=== PATIENT | female | born 1965 | race Caucasian/White ===

== ENCOUNTER → 2024-01-23 12:52 | Outpatient (REF) | payer BC, SELFPAY | LOC: MRI 3T 12:52 | PROVIDERS: ATTENDING PHYSICIAN Nurse Practitioner Adult Health; FAMILY PHYSICIAN Nurse Practitioner Adult Health | DX: G43.111 Migraine with aura, intractable, with status migrainosus (principal); G43.809 Other migraine, not intractable, without status migrainosus | CPT/HCPCS: 70553; A9575 ==

== ENCOUNTER → 2024-06-03 14:01 | Outpatient (REF) | payer BC, SELFPAY | LOC: HWRAD 14:01 | PROVIDERS: ATTENDING PHYSICIAN Physician Assistant; FAMILY PHYSICIAN Nurse Practitioner Adult Health | DX: M25.569 Pain in unspecified knee (principal); M54.2 Cervicalgia; M79.643 Pain in unspecified hand | CPT/HCPCS: 72052; 73120; 73560; 73565 ==

== ENCOUNTER 2024-10-15 06:09 | Day surgery (SDC) | payer BC, SELFPAY ==
[2024-10-15 06:40] VITALS: BMI 27.0
[2024-10-15 06:45] VITALS: BP 142/79
[2024-10-15 07:00] VITALS: BMI 27.0
[2024-10-15] MEDS: TYLENOL 1000 MG PO (07:04)
[2024-10-15] MEDS: NORMOSOL-R/PLASMALYTE-A 1000 IV (07:06)
--- NOTE | 2024-10-15 07:42 | W.SUR.PREOP ---
Pre-Operative Surgical Note
-
I have examined this patient prior to the performance of the scheduled procedure.
The patient's condition is unchanged from the time of the current History and
Physical and the patient is able to undergo the scheduled procedure.
--- NOTE | 2024-10-15 07:42 | HP.FOC2 ---
Focused History & Physical
Chief Complaint
HPI:
Chief Complaint: Umbilical hernia
HPI / Indication for Planned Procedure: This is a 59-year-old female with a symptomatic umbilical hernia
Relevant Past Medical History: Negative
Relevant Social History: Negative
Relevant Family History: Negative
Relevant Past Surgical History: Negative
Review of Systems
Review of Pertinent Systems: All Systems Negative
Medication
See Medication form for detailed medications: Yes
Medication List (including Herbals & OTC):
Bifidobacterium infantis 4 mg capsule (Align (B.infantis)) 4 mg PO DAILY 10/14/24
acetaminophen 325 mg tablet 650 mg PO Q4H PRN pain 10/14/24
alprazolam 0.25 mg tablet (Xanax) 0.25 mg PO BID PRN anxiety 10/14/24
escitalopram oxalate 5 mg tablet (Lexapro) 5 mg PO DAILY 10/14/24
fremanezumab-vfrm 225 mg/1.5 mL subcutaneous auto-injector (Ajovy) 225 mg SC QMONTH 10/14/24
multivitamin 1 tab PO DAILY 10/14/24
Medications Reviewed: Yes
Allergies and Reactions
Patient has Allergies: No
Noted Allergies and Reactions:
Allergy/AdvReac Type Severity Reaction Status Date / Time
No Known Allergies Allergy Verified 10/15/24 06:54
Pertinent Physical Exam
All Other Systems: Negative
Head/Neck: Normal
Heart: Other
Abdomen: Other (Umbilical hernia)
Diagnosis / Assessment
This is a 59-year-old female with a symptomatic umbilical hernia
Plan / Procedure
Will plan for an open umbilical hernia repair with mesh.
Anesthesia/Sedation to be done by Anesthesia Provider: Yes
[2024-10-15 08:52] VITALS: BP 142/79; BP 95/53
--- NOTE | 2024-10-15 09:14 | W.IMMPOSTOP ---
Surgical Immed Post Op Note
-
Primary Surgeon: Gino Calloway MD
Assisting Surgeon: None
Pre-op Diagnosis: Umbilical hernia
Post-op Diagnosis: Same
Procedure Performed: Open umbilical hernia repair with mesh
Anesthesia Type: General
Specimen / Cultures: None
Estimated Blood Loss: 3 cc
Complications: None
Operative Findings: 1.5 cm umbilical defect containing preperitoneal fat that was debulked. The preperitoneal space was developed large enough to accommodate a 5 x 5 cm Bard soft uncoated polypropylene mesh. 1 g of Monika was used in this space to
assist with hemostasis. The defect was closed in a transverse fashion with 3 [id number]'s 0 PDS sutures. Tegaderm and gauze suction dressing was placed.
--- NOTE | 2024-10-15 09:17 | OR.RPT ---
Operative Report
Operative Report
Patient Name: Ne Locke
: 1965
Date of Operation: 10/15/2024
Preoperative Diagnosis: Umbilical hernia
Postoperative Diagnosis: Same
Procedure(s):
Open umbilical hernia
Surgeon(s):
Dr. Calloway
Manager Academic(s):
ASHLEY Nagy
Anesthesia: MAC
Estimated Blood Loss: 3 cc
Urine Output: None
Drains/Lines/Implants: 5 cm round Bard Soft uncoated polypropylene mesh
Specimens: None
Indication for surgery:
The patient has a symptomatic umbilical hernia. After review of their therapeutic options, they elected to pursue open repair.
Operative Findings: 1.5 cm umbilical defect containing preperitoneal fat that was debulked. The preperitoneal space was developed large enough to accommodate a 5 x 5 cm Bard soft uncoated polypropylene mesh. 1 g of Monika was used in this space to
assist with hemostasis. The defect was closed in a transverse fashion with 3 [id number]-zflri's 0 PDS sutures. Tegaderm and gauze suction dressing was placed.
Details of the operation:
After successful induction of anesthesia, the patient was prepped and draped in the supine position. A team timeout was performed confirming administration of DVT prophylaxis, IV antibiotics and SCDs. The skin was anesthestized with 0.25% Marcaine
and an infraumbilical incision was made and dissection carried down to the fascia. The hernia sac was then encircled and carefully dissected off of the umbilical stalk and debulked using 3-0 Vicryl ties before it was returned to the abdomen. The
defect measured 1.5 cm. The preperitoneal fat was dissected and debulked to create a pocket large enough to accommodate the 5 x 5 cm mesh to ensure the mesh laid completely flat. The defect was then closed in the transverse direction using three 0
PDS [id number] sutures. The umbilical stalk was then tacked down to the fascia with a 3-0 Vicryl suture. The dermis was then approximated with interrupted 3-0 Vicryl sutures followed by Dermabond. Once the glue had dried, we placed a folded
up piece of gauze into the umbilicus and covered it with a large Tegaderm dressing and then suctioned out the gauze to create a vacuum dressing to help obliterate the space. The patient returned to the Recovery Room in stable condition. Sponge
and instrument counts were correct. No specimens sent to Pathology.
I was the attending physician and performed the procedure with assistance of the PA above. The assistance of ASHLEY Nagy was required due to the complexity of the procedure. During the procedure Yanique assisted with retraction, resection, and
closure of the wound. I was present for all portions of the case, excluding skin closure.
Gino Calloway MD
[2024-10-15 09:25] VITALS: BP 111/72
[2024-10-15 09:55] VITALS: BP 115/66
== END 2024-10-15 10:20 | disposition home or self-care (01) ==
LOC: SDS 06:09
PROVIDERS: ATTENDING PHYSICIAN Surgery
PROC: 0WUF0JZ Supplement Abdominal Wall with Synthetic Substitute, Open Approach (ICD-10-PCS; 2024-10-15)
DX: K42.9 Umbilical hernia without obstruction or gangrene (principal)
CPT/HCPCS: 49591